=== PATIENT | male | born 1970 | race Caucasian/White ===

== ENCOUNTER → 2018-02-06 | Outpatient (CLI) | payer OTHER ==
[~2018-02-06] MED LIST: HYDROCODON-ACE1 EAC7 PO; NAPROXEN DELAY500 M1 PO; NORCO 5-325 TA1 EACH PO; NORFLEX100 MG PO; PERCOCET 5-3251 EACH PO; TRAMADOL 50 MG50 MG PO
== END ==
LOC: M.ULTRA 08:59
DX: N31.9 Neuromuscular dysfunction of bladder, unspecified (principal)